=== PATIENT | male | born 1940 | race Caucasian/White ===

== ENCOUNTER → 2017-01-13 | Outpatient (CLI) | payer MEDICARE ==
[2017-01-13 14:52] LABS: Calcium 10.1 mg/dL (8.4-10.2); Magnesium 2.2 mg/dL (1.6-2.3); Potassium 4.5 mmol/L (3.5-5.1); Total Bilirubin 0.8 mg/dL (0.2-1.3); Total Protein 6.8 g/dL (6.3-8.2); Uric Acid 5.8 mg/dL (3.5-8.5)
== END | disposition home or self-care (01) ==
LOC: LABWHC1 08:27
PROVIDERS: ATTEND Internal Medicine
DX: E78.00 Pure hypercholesterolemia, unspecified (principal); N18.3 Chronic kidney disease, stage 3 (moderate); E79.0 Hyperuricemia without signs of inflammatory arthritis and tophaceous disease; E55.9 Vitamin D deficiency, unspecified; M10.9 Gout, unspecified; N25.81 Secondary hyperparathyroidism of renal origin; Z29.9 Encounter for prophylactic measures, unspecified; Z12.5 Encounter for screening for malignant neoplasm of prostate
CPT/HCPCS: 80061; 80053; 82550; 83735; 84100; 84550; 82306; 83970; 36415; G0103

== ENCOUNTER → 2017-05-14 | Outpatient (CLI) | payer MEDICARE ==
[2017-05-14 08:50] LABS: Appearance,Urine Clear (Clear); Bilirubin,Urine Negative (Negative); Glucose,Urine (UA) Negative (Negative); Ketones,Urine Negative (Negative); Leukocyte Esterase,Urine Negative (Negative); Nitrite,Urine Negative (Negative); Protein,Urine Negative (Negative); Specific Gravity,Urine 1.006 (1.001-1.035); UA Billing (MACRO vs. MICRO) CHEM; Urobilinogen,Urine <2.0 mg/dL (<2.0)
[2017-05-14 09:02] LABS: Calcium 10.2 mg/dL (8.4-10.2); Magnesium 1.8 mg/dL (1.6-2.3); Potassium 4.6 mmol/L (3.5-5.1); Total Bilirubin 0.6 mg/dL (0.2-1.3); Total Protein 6.4 g/dL (6.3-8.2); Uric Acid 4.9 mg/dL (3.5-8.5)
[2017-05-15 09:57] LABS: Free Kappa Lt Chain Qnt, Serum 3.79 mg/dL (0.33-1.94)
== END | disposition home or self-care (01) ==
LOC: LABWHC1 07:52
PROVIDERS: ATTEND Urology
DX: N18.3 Chronic kidney disease, stage 3 (moderate) (principal); N39.0 Urinary tract infection, site not specified; E21.3 Hyperparathyroidism, unspecified; E55.9 Vitamin D deficiency, unspecified; M10.9 Gout, unspecified; R97.20 Elevated prostate specific antigen [PSA]
CPT/HCPCS: 36415; 80053; 81003; 82306; 83735; 83883; 83970; 84100; 84153; 84550; 86335

== ENCOUNTER → 2017-07-08 | Outpatient (CLI) | payer MEDICARE ==
[2017-07-08 09:04] LABS: Appearance,Urine Clear (Clear); Bilirubin,Urine Negative (Negative); Glucose,Urine (UA) Negative (Negative); Ketones,Urine Negative (Negative); Leukocyte Esterase,Urine Negative (Negative); Nitrite,Urine Negative (Negative); Protein,Urine Negative (Negative); Specific Gravity,Urine 1.009 (1.001-1.035); UA Billing (MACRO vs. MICRO) CHEM; Urobilinogen,Urine <2.0 mg/dL (<2.0)
[2017-07-08 09:15] LABS: Calcium 9.8 mg/dL (8.4-10.2); Phosphorus 3.8 mg/dL (2.5-4.5); Potassium 4.5 mmol/L (3.5-5.1); Total Bilirubin 0.5 mg/dL (0.2-1.3); Total Protein 6.5 g/dL (6.3-8.2); Uric Acid 4.1 mg/dL (3.5-8.5)
[2017-07-14 09:34] LABS: Mis test requested (Blood) PTH-RELATED PROTEIN
== END | disposition home or self-care (01) ==
LOC: LABWHC1 08:20
PROVIDERS: ATTEND Internal Medicine
DX: N18.3 Chronic kidney disease, stage 3 (moderate) (principal); N39.0 Urinary tract infection, site not specified; R80.9 Proteinuria, unspecified; E21.3 Hyperparathyroidism, unspecified; E55.9 Vitamin D deficiency, unspecified; M10.9 Gout, unspecified
CPT/HCPCS: 36415; 80053; 81003; 82570; 82652; 83519; 83735; 83970; 84100; 84156; 84550

== ENCOUNTER → 2018-01-13 | Outpatient (CLI) | payer MEDICARE ==
[2018-01-13 09:21] LABS: Appearance,Urine Clear (Clear); Bilirubin,Urine Negative (Negative); Blood,Urine Negative (Negative); Color,Urine Yellow; Glucose,Urine (UA) Negative (Negative); Ketones,Urine Negative (Negative); Leukocyte Esterase,Urine Negative (Negative); Nitrite,Urine Negative (Negative); PH, Urine 6.5 (5.0-8.0); Protein,Urine Negative (Negative); Specific Gravity,Urine 1.012 (1.001-1.035); Urobilinogen,Urine <2.0 mg/dL (<2.0)
[2018-01-13 09:41] LABS: Creatinine,Urine Random 106.1 mg/dL
[2018-01-13 09:47] LABS: Albumin 4.2 g/dL (3.5-5.0); Calcium 10.3 mg/dL (8.4-10.2); Magnesium 2.4 mg/dL (1.6-2.3); Phosphorus 3.4 mg/dL (2.5-4.5); Potassium 4.7 mmol/L (3.5-5.1); Total Bilirubin 0.8 mg/dL (0.2-1.3); Total Protein 6.7 g/dL (6.3-8.2); Uric Acid 5.2 mg/dL (3.5-8.5)
[2018-01-13 15:35] LABS: Vitamin D 25 Hydroxy 48.3 ng/mL (30.0-100.0)
[2018-01-13 16:08] LABS: Parathyroid Hormone Intact 61.8 pg/mL (14.0-72.0)
== END ==
LOC: LABWHC1 08:41
PROVIDERS: ATTEND Internal Medicine
DX: N18.3 Chronic kidney disease, stage 3 (moderate) (principal); E55.9 Vitamin D deficiency, unspecified; N39.0 Urinary tract infection, site not specified; E21.3 Hyperparathyroidism, unspecified; M10.9 Gout, unspecified; R80.9 Proteinuria, unspecified; E79.0 Hyperuricemia without signs of inflammatory arthritis and tophaceous disease; E78.00 Pure hypercholesterolemia, unspecified
CPT/HCPCS: 36415; 80053; 80061; 81003; 82306; 82550; 82570; 82652; 83735; 83970; 84100; 84156; 84550

== ENCOUNTER → 2018-01-30 | Outpatient (CLI) | payer MEDICARE ==
--- NOTE | 2018-01-30 15:14 | NM ---
EXAMINATION TYPE: NM parathyroid w/spect DATE OF EXAM: 01/30/2018 COMPARISON: NONE HISTORY: Hypercalcemia TECHNIQUE: Following administration of 26.2 mCi Tc99m Sestamibi. Anterior projection images of the neck and ches t were obtained 10 minutes and 3 hours post injection. SPECT images of the neck and chest were obtai diane and reconstructed in three axes. FINDINGS: Thyroid tracer washout: Delayed images demonstrate near-complete tracer washout from the thyroid. Parathyroid uptake: None. The two-hour delayed images do not demonstrate any focal abnormal persisten t uptake in the region of the parathyroid glands to suggest parathyroid adenoma. Normal uptake: There is physiological tracer uptake in the myocardium, liver, salivary glands, and th yroid gland. IMPRESSION: Normal parathyroid imaging study. No evidence for mediastinal uptake to suggest mediastinal parathyro id adenoma
== END | disposition home or self-care (01) ==
LOC: RADNMMAIN 11:07
PROVIDERS: ATTEND Internal Medicine
DX: E83.52 Hypercalcemia (principal)
CPT/HCPCS: 78071; A9500

== ENCOUNTER → 2018-05-26 | Outpatient (CLI) | payer MEDICARE ==
[2018-05-26 08:06] LABS: HCT 40.6 % (39.0-53.0); HGB 13.1 gm/dL (13.0-17.5); MCH 31.7 pg (25.0-35.0); MCHC 32.3 g/dL (31.0-37.0); Mean Platelet Volume 9.3; Platelet Count 212 k/uL (150-450); RBC 4.15 m/uL (4.30-5.90); RDW 14.2 % (11.5-15.5); WBC 6.8 k/uL (3.8-10.6)
[2018-05-26 09:06] LABS: Albumin 3.7 g/dL (3.5-5.0); Calcium 9.4 mg/dL (8.4-10.2); Magnesium 2.3 mg/dL (1.6-2.3); Potassium 4.3 mmol/L (3.5-5.1); Total Bilirubin 0.5 mg/dL (0.2-1.3); Total Protein 6.1 g/dL (6.3-8.2); Uric Acid 4.6 mg/dL (3.5-8.5)
[2018-05-26 09:36] LABS: PSA Annual Screen 5.29 ng/mL (0.00-4.00)
[2018-05-26 16:24] LABS: Iron Saturation 26.22 (15.00-50.00); Parathyroid Hormone Intact 62.9 pg/mL (14.0-72.0)
[2018-05-26 16:31] LABS: Vitamin D 25 Hydroxy 38.5 ng/mL (30.0-100.0)
== END | disposition home or self-care (01) ==
LOC: LABWHC1 07:29
PROVIDERS: ATTEND Internal Medicine
DX: I12.9 Hypertensive chronic kidney disease with stage 1 through stage 4 chronic kidney disease, or unspecified chronic kidney disease (principal); N18.3 Chronic kidney disease, stage 3 (moderate); D63.1 Anemia in chronic kidney disease; E21.3 Hyperparathyroidism, unspecified; E55.9 Vitamin D deficiency, unspecified; M10.9 Gout, unspecified; Z29.9 Encounter for prophylactic measures, unspecified; Z12.5 Encounter for screening for malignant neoplasm of prostate
CPT/HCPCS: 80053; 82728; 82164; 83540; 83550; 83735; 84100; 84550; 85027; 82306; 83970; 36415; G0103

== ENCOUNTER → 2018-08-12 | Outpatient (CLI) | payer MEDICARE ==
[2018-08-12 08:07] LABS: Appearance,Urine Clear (Clear); Bilirubin,Urine Negative (Negative); Blood,Urine Negative (Negative); Color,Urine Colorless; Glucose,Urine (UA) Negative (Negative); Ketones,Urine Negative (Negative); Leukocyte Esterase,Urine Negative (Negative); Nitrite,Urine Negative (Negative); Protein,Urine Negative (Negative); Specific Gravity,Urine 1.005 (1.001-1.035); Urobilinogen,Urine <2.0 mg/dL (<2.0)
[2018-08-12 08:08] LABS: HCT 43.8 % (39.0-53.0); HGB 14.1 gm/dL (13.0-17.5); MCH 31.9 pg (25.0-35.0); MCHC 32.3 g/dL (31.0-37.0); MCV 98.9 fL (80.0-100.0); Mean Platelet Volume 8.1; Platelet Count 231 k/uL (150-450); RBC 4.43 m/uL (4.30-5.90); RDW 14.2 % (11.5-15.5); WBC 8.4 k/uL (3.8-10.6)
[2018-08-12 16:15] LABS: Parathyroid Hormone Intact 75.7 pg/mL (14.0-72.0)
[2018-08-12 17:29] LABS: Albumin 4.5 g/dL (3.80-4.90); Albumin/Globulin Ratio 2.37 (1.20-2.10); Anion Gap 8.7 mmol/L (4.00-12.00); Calcium 9.7 mg/dL (8.7-10.3); Carbon Dioxide 26.3 mmol/L (21.6-31.8); Globulin 1.9 g/dL (2.1-3.7); Magnesium 2.2 mg/dL (1.5-2.4); Phosphorus 3.7 mg/dL (2.4-5.1); Potassium 4.9 mmol/L (3.5-5.5); Total Bilirubin 0.6 mg/dL (0.3-1.2); Total Protein 6.4 g/dL (6.2-8.2); Uric Acid 5.2 mg/dL (3.7-8.7)
[2018-08-12 17:55] LABS: Iron Saturation 36.88 (15.00-50.00)
[2018-08-12 18:04] LABS: Vitamin D 25 Hydroxy 30.6 ng/mL (30.0-100.0)
== END | disposition home or self-care (01) ==
LOC: LABWHC1 07:06
PROVIDERS: ATTEND Internal Medicine
DX: N18.3 Chronic kidney disease, stage 3 (moderate) (principal); D63.1 Anemia in chronic kidney disease; N39.0 Urinary tract infection, site not specified; E21.3 Hyperparathyroidism, unspecified; E55.9 Vitamin D deficiency, unspecified; M10.9 Gout, unspecified
CPT/HCPCS: 36415; 80053; 81003; 82306; 82728; 83540; 83550; 83735; 83970; 84100; 84550; 85027

== ENCOUNTER → 2018-12-30 | Outpatient (CLI) | payer MEDICARE ==
[2018-12-30 09:01] LABS: HCT 46.7 % (39.0-53.0); HGB 14.7 gm/dL (13.0-17.5); MCH 31.1 pg (25.0-35.0); MCHC 31.5 g/dL (31.0-37.0); MCV 98.8 fL (80.0-100.0); Mean Platelet Volume 8.9; Platelet Count 226 k/uL (150-450); RBC 4.73 m/uL (4.30-5.90); RDW 14.7 % (11.5-15.5); WBC 6.5 k/uL (3.8-10.6)
[2018-12-30 09:09] LABS: Appearance,Urine Clear (Clear); Bilirubin,Urine Negative (Negative); Blood,Urine Negative (Negative); Color,Urine Yellow; Glucose,Urine (UA) Negative (Negative); Ketones,Urine Negative (Negative); Leukocyte Esterase,Urine Negative (Negative); Nitrite,Urine Negative (Negative); Protein,Urine Negative (Negative); Specific Gravity,Urine 1.016 (1.001-1.035); Urobilinogen,Urine <2.0 mg/dL (<2.0)
[2018-12-30 17:15] LABS: Parathyroid Hormone Intact 71.1 pg/mL (14.0-72.0)
[2018-12-30 18:31] LABS: Iron Saturation 37.14 (15.00-50.00)
[2018-12-30 18:39] LABS: Vitamin D 25 Hydroxy 36.8 ng/mL (30.0-100.0)
[2018-12-30 18:48] LABS: Albumin 4.2 g/dL (3.80-4.90); Albumin/Globulin Ratio 2.33 (1.60-3.17); Anion Gap 7.8 mmol/L (4.00-12.00); Calcium 9.6 mg/dL (8.7-10.3); Carbon Dioxide 26.2 mmol/L (21.6-31.8); Globulin 1.8 g/dL (1.6-3.3); LDL Cholesterol,Calculated 55.4 mg/dL (0.0-131.0); Magnesium 2.2 mg/dL (1.5-2.4); Phosphorus 3.7 mg/dL (2.4-5.1); Potassium 4.5 mmol/L (3.5-5.5); Total Bilirubin 0.6 mg/dL (0.3-1.2); VLDL Calculation 22.6 mg/dL (5.00-40.00)
== END | disposition home or self-care (01) ==
LOC: LABWHC1 08:28
PROVIDERS: ATTEND Internal Medicine
DX: N18.3 Chronic kidney disease, stage 3 (moderate) (principal); D63.1 Anemia in chronic kidney disease; N39.0 Urinary tract infection, site not specified; E21.3 Hyperparathyroidism, unspecified; E55.9 Vitamin D deficiency, unspecified; M10.9 Gout, unspecified; E78.00 Pure hypercholesterolemia, unspecified
CPT/HCPCS: 36415; 80053; 80061; 81003; 82306; 82550; 82728; 83540; 83550; 83735; 83970; 84100; 84550; 85027

== ENCOUNTER → 2020-10-24 | Outpatient (CLI) | payer MEDICARE ==
--- NOTE | 2020-10-24 10:30 | FL ---
EXAMINATION TYPE: FL barium swallow DATE OF EXAM: 10/24/2020 COMPARISON: None HISTORY: Difficulty swallowing, possible aspiration history TECHNIQUE: A double air contrast esophagus study is performed. FINDINGS: Esophagus dilates normal caliber has normal contour to the gastroesophageal junction. Gastroesophagea l junction opens to normal caliber. A small self reducing sliding type hiatal hernia is present. A few small tertiary contractions are evident. A secondary contraction was evident during the [facility] [place] drinking imaging. 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 Mild gastroesophageal reflux was evident during the exam. There is incomplete stripping of the esopha geal bolus in the horizontal drinking position. Overhead radiographs were obtained which are unremarkable. Incidental note is made of the third portion duodenal diverticulum IMPRESSIONS: 1. Mild gastroesophageal reflux. 2. Self reducing sliding type hiatal hernia. 3. Presbyesophagus
== END | disposition home or self-care (01) ==
LOC: CPPFTMAIN 07:22
PROVIDERS: ATTEND Internal Medicine
DX: R94.2 Abnormal results of pulmonary function studies (principal); J84.9 Interstitial pulmonary disease, unspecified; K21.9 Gastro-esophageal reflux disease without esophagitis; K44.9 Diaphragmatic hernia without obstruction or gangrene; K22.8 Other specified diseases of esophagus
CPT/HCPCS: 74220; 94060; 94726; 94729

== ENCOUNTER → 2021-03-21 | Outpatient (CLI) | payer MEDICARE ==
--- NOTE | 2021-03-21 13:28 | US ---
EXAMINATION TYPE: US kidneys/renal and bladder DATE OF EXAM: 03/21/2021 COMPARISON: NONE CLINICAL HISTORY: N18.32 CKD Stage 3b. abnormal labs. No pain. EXAM MEASUREMENTS: Right Kidney: 7.5 x 3.3 x 3.7 cm Left Kidney: 12.0 x 5.0 x 5.4 cm Right Kidney: Appears small in size. Echogenic in appearance. Limited visualization due to kidney a ppearance. Cystic lesion seen= 0.7 x 0.6 x 0.7 cm Left Kidney: No hydronephrosis or masses seen Bladder: anechoic, distended Bilateral Jets not seen There is no evidence for hydronephrosis at this point in time. No nephrolithiasis is seen. IMPRESSION: Right kidney is shrunken and echogenic and not well seen with a possible hypoechoic lesion versus cys t. Followup ultrasound is recommended in 6-12 months.
== END | disposition home or self-care (01) ==
LOC: RADUSWWP 09:55
PROVIDERS: ATTEND Internal Medicine Nephrology
DX: N18.32 Chronic kidney disease, stage 3b (principal)
CPT/HCPCS: 76770

== ENCOUNTER → 2022-05-09 | Outpatient (CLI) | payer MEDICARE ==
--- NOTE | 2022-05-09 16:35 | US ---
EXAMINATION TYPE: US bladder DATE OF EXAM: 05/09/2022 COMPARISON: 03/21/2021 History: 82-year-old male N18.9, CKD, Rt Flank Pain TECHNIQUE: Multiple sonographic images of the bladder are obtained. FINDINGS: EXAM MEASUREMENTS: Post Void Residual Volume: 28.5 mL COMPUTER PROGRAMMER ANALYST NOTES: Incidental finding prominent prostate measuring 5.4 x 6.1 x 6.7cm Color Doppler performed to assess ureteral jets. Bilateral Jets seen: Yes Normal Post Void Residual (less than 50ml): Yes IMPRESSION: 1. Incidental prostatomegaly up to 6.7 cm impressing onto the base of the bladder. Correlate with PSA values and patient symptoms for BPH. 2. Increased postvoid bladder volume of nearly 30 mL still falls within acceptable limits.
== END | disposition home or self-care (01) ==
LOC: RADUSWWP 12:55
PROVIDERS: ATTEND Family Medicine
DX: N18.9 Chronic kidney disease, unspecified (principal)
CPT/HCPCS: 76857

== ENCOUNTER → 2022-05-13 | Outpatient (CLI) | payer MEDICARE ==
--- NOTE | 2022-05-13 20:14 | CT ---
EXAMINATION TYPE: CT abdomen pelvis wo con CT DLP: 438.3 mGycm, Automated exposure control for dose reduction was used. DATE OF EXAM: 05/13/2022 6:35 PM COMPARISON: None CLINICAL INDICATION:Male, 82 years old with history of R19.00 INTRA-ABD AND PELVIC SWELLING; INTRA-AB D AND PELVIC SWELLING TECHNIQUE: Axial CT of the abdomen and pelvis. Sagittal and coronal reformats were created on a [employer] workstation. Contrast used: None Oral contrast used: with Oral Contrast FINDINGS: LOWER CHEST: Scattered reticular opacities in the lung bases bilaterally. Coronary artery atheroscler osis. ABDOMEN LIVER: Hepatic cysts are scattered throughout the liver. GALLBLADDER AND BILE DUCTS: Unremarkable. PANCREAS: Unremarkable. SPLEEN: Unremarkable. ADRENAL GLANDS: Unremarkable. KIDNEYS AND URETERS: No evidence of hydronephrosis or renal calculus. The ureters are unremarkable. Atrophic right kidney. PELVIS BLADDER: Unremarkable REPRODUCTIVE: Prostate is enlarged in size measuring 7.0 cm in transverse dimension. ABDOMEN & PELVIS STOMACH AND BOWEL: . Scattered diverticula are noted throughout the colon. No evidence of bowel obstr uction. PERITONEUM: No evidence of pneumoperitoneum or free fluid. VASCULATURE: Mild atherosclerotic calcifications are present throughout the abdominal aorta and its b ranches. No evidence of aortic aneurysm. MUSCULOSKELETAL: No acute osseous abnormalities, multilevel disc degeneration changes with levoscolio sis apex L3. Atrophic left adductor longus muscle. LYMPH NODES: No gross evidence for lymphadenopathy. SOFT TISSUE/ABDOMINAL WALL: Left fat filled inguinal hernia. IMPRESSION: 1. No evidence for intra-abdominal or pelvic swelling 2. Atrophic right kidney. 3. Prostatomegaly, Correlate with serum PSA. 4. Colonic diverticulosis. 5. Left fat filled inguinal hernia. 6. Chronic appearing interstitial lung disease.
== END | disposition home or self-care (01) ==
LOC: RADCTMAIN 16:35
PROVIDERS: ATTEND Family Medicine
DX: R19.00 Intra-abdominal and pelvic swelling, mass and lump, unspecified site (principal)
CPT/HCPCS: 74176; Q9967